=== PATIENT | male | born 1950 | race Caucasian/White ===

== ENCOUNTER 2021-07-31 06:57 | Observation (INO) ==
--- NOTE | 2021-06-27 15:36 | PAT Medication Instructions ---
Medication Instructions Date of Service June 27, 2021 Home Medications aspirin 81 mg chewable tablet 3 tab PO HS allopurinol 100 mg tablet 100 mg PO BID empagliflozin 25 mg tablet (Jardiance) 25 mg PO QAM glipizide 5 mg tablet, extended release 24 hr 10 mg PO 1200 rosuvastatin 5 mg tablet (Crestor) 5 mg PO HS bupropion HCl 200 mg tablet,12 hr sustained-release 200 mg PO QAM cholecalciferol (vitamin D3) 50 mcg (2,000 unit) tablet (Vitamin D3) 50 mcg PO QAM duloxetine 30 mg capsule,delayed release 30 mg PO HS garlic 1 mg capsule 2 mg PO BID glipizide 5 mg tablet 5 mg PO QPM metformin 500 mg tablet,extended release 24 hr 1,000 mg PO BID metoprolol tartrate 50 mg tablet 50 mg PO BID selenium 100 mcg tablet 100 mcg PO QAM semaglutide (Ozempic) 0.25 mg SUBCUT WK sildenafil 100 mg tablet 100 mg PO DAILY PRN Continue as directed semaglutide (Ozempic) 0.25 mg SUBCUT WK ASK your prescriber and surgeon aspirin 81 mg chewable tablet 3 tab PO HS STOP taking 2 weeks before surgery (or as soon as possible if surgery is within 2 weeks) garlic 1 mg capsule 2 mg PO BID DO NOT take the morning of surgery empagliflozin 25 mg tablet (Jardiance) 25 mg PO QAM glipizide 5 mg tablet, extended release 24 hr 10 mg PO 1200 cholecalciferol (vitamin D3) 50 mcg (2,000 unit) tablet (Vitamin D3) 50 mcg PO QAM metformin 500 mg tablet,extended release 24 hr 1,000 mg PO BID selenium 100 mcg tablet 100 mcg PO QAM sildenafil 100 mg tablet 100 mg PO DAILY PRN Take morning of surgery With a small sip of water, OTHERWISE NOTHING TO EAT OR DRINK AFTER MIDNIGHT: allopurinol 100 mg tablet 100 mg PO BID bupropion HCl 200 mg tablet,12 hr sustained-release 200 mg PO QAM metoprolol tartrate 50 mg tablet 50 mg PO BID Take evening before surgery allopurinol 100 mg tablet 100 mg PO BID rosuvastatin 5 mg tablet (Crestor) 5 mg PO HS duloxetine 30 mg capsule,delayed release 30 mg PO HS glipizide 5 mg tablet 5 mg PO QPM metformin 500 mg tablet,extended release 24 hr 1,000 mg PO BID metoprolol tartrate 50 mg tablet 50 mg PO BID sildenafil 100 mg tablet 100 mg PO DAILY PRN (if needed) Other Notes If you have any questions please call us at [phone] or [phone] or [phone] or [phone]
--- NOTE | 2021-07-01 11:10 | Anesthesiology Consultation ---
Date of Service July 01, 2021 Assessment & Plan (1) Encounter for pre-operative examination: - COVID screening: Per assessment on 07/01: No known COVID-19 positive contacts or current COVID-19 related symptoms. Travel screen negative. Patient raji hammond. Surgeon arranging preop COVID testing. Awaiting results. - Check BSG AM DOS - Awaiting surgeon ordered clearances: cardiology ([facility] 07/10), nephrology ([facility] 07/10) and PCP ([facility] 07/22). Chart Review Chart Review: Patient seen in Pre Admission Testing Teaching & Discussion Pre-Anesthesia Teaching/Discussion Notes: Instructed NPO after midnight before surgery,except medications with 15 cc of water. Medication instructions provided according to the PAT guidelines. History Surgery Operation Date: 07/31/21 10:05 Proposed Procedures p Left Total Hip Arthroplasty - Matt Duvall DO Height/Weight Height: 5 ft 10 in Weight: 110.9 kg Allergies Allergy/AdvReac Type Severity Reaction Status Date / Time bee venom protein (honey bee) Allergy Severe Anaphylaxis Verified 06/27/21 09:46 metformin AdvReac Mild Diarrhea Verified 07/01/21 10:37 (tolerates ER form) simvastatin AdvReac Mild Muscle Verified 07/01/21 10:37 aches Medications Home Medications Medication Instructions Recorded Confirmed Last Taken aspirin 81 mg chewable tablet 3 tab PO HS tab 09/18/20 06/27/21 Unknown allopurinol 100 mg tablet 100 mg PO BID 04/25/21 06/27/21 Unknown empagliflozin 25 mg tablet 25 mg PO QAM 06/10/21 06/27/21 Unknown (Jardiance) glipizide 5 mg tablet, extended 10 mg PO 1200 tab 06/10/21 06/27/21 Unknown release 24 hr rosuvastatin 5 mg tablet (Crestor) 5 mg PO HS 06/10/21 06/27/21 Unknown bupropion HCl 200 mg tablet,12 hr 200 mg PO QAM 06/27/21 06/27/21 Unknown sustained-release cholecalciferol (vitamin D3) 50 50 mcg PO QAM 06/27/21 06/27/21 Unknown mcg (2,000 unit) tablet (Vitamin D3) duloxetine 30 mg capsule,delayed 30 mg PO HS 06/27/21 06/27/21 Unknown release garlic 1 mg capsule 2 mg PO BID 06/27/21 06/27/21 Unknown glipizide 5 mg tablet 5 mg PO QPM 06/27/21 06/27/21 Unknown metformin 500 mg tablet,extended 1,000 mg PO BID 06/27/21 06/27/21 Unknown release 24 hr metoprolol tartrate 50 mg tablet 50 mg PO BID 06/27/21 06/27/21 Unknown selenium 100 mcg tablet 100 mcg PO QAM 06/27/21 06/27/21 Unknown semaglutide (Ozempic) 0.25 mg SUBCUT WK 06/27/21 06/27/21 Unknown sildenafil 100 mg tablet 100 mg PO DAILY PRN 06/27/21 06/27/21 Unknown Past Medical History Medical History Coronary artery disease s/p CABG x3 (2009) Follows with [facility] cardiology Depression Diabetes mellitus NIDDM Dyslipidemia History of UT (myocardial infarction) Hypertension Neuropathy of both feet Osteoarthritis Post traumatic stress disorder Stage 3b chronic kidney disease Follows with [facility] nephro Exercise / Class Metabolic Activity II 4-5 Yardwork/Stairs/Walk up hill (one FS (no CP, no SOB)) Past Family History Family History Mother Diabetes Heart disease Other No family history of adverse response to anesthesia Past Surgical History Surgical History History of cardiac cath 07/2009 > no stents ([facility]), subsequent CABG History of colonoscopy History of open heart surgery CABG X 3 (2009): Barros-LAD; SVG-OM1; SVG-PDA History of tooth extraction S/P thyroid biopsy benign Past Anesthesia History No Hx of Anesthesia Complications and No Family Hx of Anesthesia Complications History of PONV No Hx of PONV and No Hx of Motion Sickness Social History Smoking Status: Former smoker Do You Dip or Chew Tobacco: No Smoking End Date: Quit 2009 Hx Alcohol Use: No (Quit drinking at the age of 32) Hx Substance Use: No substance use type: does not use Review of Systems Patient denies chest pain, shortness of breath, dyspnea on exertion, fever, chills, cough, wheezing, palpitations. Physical Exam Vital Signs VITALS BP 147/74 P 70 TEMP 97.9 SP02 97%RA RESP 16 PHYSICAL Full cervical extension range of motion. Full TMJ range of motion. TMD 3 finger breaths Mallampati Score 2 Dentition: only three remaining of lower Lungs: clear throughout to auscultation Cardiac: regular rate and rhythm, no murmurs noted Spine: normal Carotid arteries: negative bruit Extremities: no edema Lab Results Anesthesia Preop Results Results Anesthesia Widget: WBC 8.50 K/uL (4.8-10.8) 07/01/21 Hgb 16.8 g/dL (14.0-18.0) 07/01/21 Hct 48.5 % (42-52) 07/01/21 Plt 218 K/uL (130-400) 07/01/21 Na 136 mmol/L (136-145) 07/01/21 K 4.2 mmol/L (3.5-5.1) 07/01/21 Cl 103 mmol/L (98-107) 07/01/21 CO2 25 mmol/L (21-32) 07/01/21 BUN 40 mg/dl (6-23) H 07/01/21 Creat 1.59 mg/dl (0.6-1.4) H 07/01/21 Glucose Level 138 mg/dl (70-99(Fasting)) H 07/01/21 PT 10.1 Seconds (9.0-12.0) 07/01/21 PTT 28.0 Seconds (21.0-31.0) 07/01/21 INR 0.9 (0.9-1.1) 07/01/21 HA1c 7.9 % (4.5-5.6) H 07/01/21 Urine Color Dark Yellow 07/01/21 Urine Appearance Clear (Clear) 07/01/21 Urine pH 5.5 (4.5-7.5) 07/01/21 Urine Specific [place] 1.027 (1.000-1.030) 07/01/21 Urine Protein 1+ (Negative) H 07/01/21 Urine Glucose (UA) 3+ (Negative) H 07/01/21 Urine Ketones Negative (Negative) 07/01/21 Urine Blood Negative (Negative) 07/01/21 Urine Nitrite Negative (Negative) 07/01/21 Urine Bilirubin Negative (Negative) 07/01/21 Urine Urobilinogen Negative (Negative) 07/01/21 Urine Leukocyte Esterase Negative (Negative) 07/01/21 Urine WBC (Auto) 1-5 /hpf (0-5) 07/01/21 Urine RBC (Auto) 0-4 /hpf (0-4) 07/01/21 Urine Hyaline Casts (Auto) 0 /lpf (0-5) 07/01/21 Urine Epithelial Cells (Auto) >30 /lpf (0-5) H 07/01/21 Urine Bacteria (Auto) Negative (Negative) 07/01/21 Blood Type O Positive 07/01/21 Antibody Screen NEGATIVE 07/01/21 Testing Laboratory Results Kristen at surgeon's office made aware of elevated A1C* Electrocardiogram Date: 09/18/20 Sinus rhythm at 80 bpm. RBBB. Possible anterior septal myocardial infarction, indeterminate age. Per rubber mixer review: inferior UT. Low QRS voltage consistent with ECG 11/04/2011. No significant change. Stress Test Date: 01/21/16 Type: nuclear Nondiagnostic stress ECG. Mild inferior, inferior lateral, apical ischemia. Mo derate probability of obstructive CAD. No significant infarction. 56% MPHR. LVEF 68%. Stress test was reviewed at [facility] cardiology office visits. Per office visit from 09/18/20, "Lexiscan pharmacologic stress test performed 2016 in [place] with report of mild inferior and apical ischemia.. At this time the patient does not have any anginal or anginal equivalent symptoms." > medical management done. Other Testing CT lung (09/04/20): Typically benign subcentimeter pulmonary nodules. 12 month screening follow-up recommended. Cholelithiasis. 35 mm right lobe thyroid nodule. Ultrasound follow-up recommended. Thyroid ultrasound (09/27/20): Bilateral thyroid nodules. The right thyroid nodule meets biopsy criteria. (Per 10/05/20, biopsy > Atypia of undetermined significance/follicular lesion of undetermined significance is seen. Repeat aspiration in 6-8 weeks was recommended. Per repeat biopsy, 11/15/20 > Consistent with a benign follicular nodule.)
--- NOTE | 2021-07-31 05:51 | History & Physical Report ---
Date of Service July 31, 2021 Assessment & Plan (1) Osteoarthritis of left hip: Plan: Schedule a Left Total Hip Arthroplasty for 07.31.21. All potential risks, benefits, complications, alternatives, and rehab have been discussed with the patient and he wishes to proceed. Plan for ASA 81 mg BID x 4 wks for post op DVT prophylaxis. History of Present Illness Chief Complaint: left hip pain Primary Care Provider: Mary Stoddard DO This is a patient with chronic left hip and groin pain. He has been treated conservatively for left hip osteoarthritis but has failed all conservative management. He is now being set up for surgical management. Allergies Allergy/AdvReac Type Severity Reaction Status Date / Time bee venom protein (honey bee) Allergy Severe Anaphylaxis Verified 07/22/21 08:02 metformin AdvReac Mild Diarrhea Verified 07/22/21 08:02 (tolerates ER form) simvastatin AdvReac Mild Muscle Verified 07/22/21 08:02 aches Home Medications Medication Instructions Recorded Confirmed Type aspirin 81 mg chewable tablet 3 tab PO HS tab 09/18/20 07/22/21 History allopurinol 100 mg tablet 100 mg PO BID 04/25/21 07/22/21 History empagliflozin 25 mg tablet 25 mg PO QAM 06/10/21 07/22/21 History (Jardiance) glipizide 5 mg tablet, extended 10 mg PO 1200 tab 06/10/21 07/22/21 History release 24 hr rosuvastatin 5 mg tablet (Crestor) 5 mg PO HS 06/10/21 07/22/21 History bupropion HCl 200 mg tablet,12 hr 200 mg PO QAM 06/27/21 07/22/21 History sustained-release cholecalciferol (vitamin D3) 50 50 mcg PO QAM 06/27/21 07/22/21 History mcg (2,000 unit) tablet (Vitamin D3) duloxetine 30 mg capsule,delayed 30 mg PO HS 06/27/21 07/22/21 History release glipizide 5 mg tablet 5 mg PO QPM 06/27/21 07/22/21 History metformin 500 mg tablet,extended 1,000 mg PO BID 06/27/21 07/22/21 History release 24 hr metoprolol tartrate 50 mg tablet 50 mg PO BID 06/27/21 07/22/21 History selenium 100 mcg tablet 100 mcg PO QAM 06/27/21 07/22/21 History sildenafil 100 mg tablet 100 mg PO DAILY PRN 06/27/21 07/22/21 History semaglutide (Ozempic) 0.5 mg SUBCUT WK ml 07/22/21 07/22/21 History Past Med/Surg History Medical History Coronary artery disease s/p CABG x3 (2009) Follows with [facility] cardiology Depression Diabetes mellitus NIDDM Dyslipidemia History of AR (myocardial infarction) Hypertension Neuropathy of both feet Osteoarthritis Post traumatic stress disorder Stage 3b chronic kidney disease Follows with [facility] nephro Surgical History History of cardiac cath 07/2009 > no stents ([facility]), subsequent CABG History of colonoscopy History of open heart surgery CABG X 3 (2009): [facility]ros-LAD; SVG-OM1; SVG-PDA History of tooth extraction S/P thyroid biopsy benign Family History Mother Diabetes Heart disease Other No family history of adverse response to anesthesia Social History Smoking Status: Former smoker Second Hand Exposure: Yes; Hx Alcohol Use: No (Quit drinking at the age of 32) Hx Substance Use: No Preferred Language: Togolese Communication Ability: Effective Slitter Scorer Cut Off Operator Required: No Beliefs That Will Affect Care: None marital status: Current Living Situation: Spouse current occupational status: retired current occupation: parts back counter man [employer] How many Children do You have: 2 Feels Safe at Home: Yes Seatbelt Use: always Do you think of yourself as: straight/heterosexual Gender Identity: Male Assistive Devices: Cane and Glasses Physical Exam Constitutional: well developed and well nourished; no acute distress ENMT: external ear and nose normal, oropharynx normal Neck: trachea midline Respiratory: normal respiratory effort, lungs clear to auscultation Cardiovascular: Rate/Rhythm: regular rate and regular rhythm Gastrointestinal (Abdomen): normal bowel sounds, soft, nontender, no hepatosplenomegaly Musculoskeletal: Gait: + antalgic gait Hip: + limited ROM of hip (left internal/external rotation), + joint line tenderness (left groin) and + ALAINA test positive (left); no skin erythema and no ecchymosis Skin: no rashes, warm and dry Trauma: no evidence of skin trauma Neurologic: normal touch/pain/proprioception Psychiatric: A+Ox3, euthymic affect Speech: normal rate/rhythm/volume of speech Lymphatic: no cervical or axillary lymphadenopathy
[~2021-07-31 06:57] MED LIST: ACETAMINOPHEN 500 MG TAB PO SCH; BUPIVACAINE 0.5 % 5 MG/1 ML PF 10ML VIAL ONE; CeleBREX 200 MG CAP PO SCH; FAMOTIDINE 20 MG TAB PO SCH; GABAPENTIN 300 MG CAP PO SCH; LR 500ML BOLUS, THEN 15ML/HR IV SCH; METOCLOPRAMIDE HCL 10 MG TABLET PO SCH; ROPIVACAINE 0.5% HCL/PF 150 MG, BUPIVACAINE 0.75% MPF 20 ML, EPINEPHrine 30MG/30ML (OR ... INSTIL SCH; TRANEXAMIC ACID 1,000 MG **IV Intra-op IV SCH; TRANEXAMIC ACID 1,000 MG **IV Pre-op IV SCH; ceFAZolin 2000MG 2,000 MG/15 ML SYR IV SCH; dexAMETHasone 4 MG TAB PO SCH; oxyCODONE HCL 10 MG TABCR (OxyCONTIN) PO SCH
--- NOTE | 2021-07-31 07:21 | History & Physical Bridge Note ---
Date of Service July 31, 2021 History & Physical Bridge Note I have examined the patient, reviewed the History & Physical and in the interval since the performance of the History & Physical I have noted the following changes of clinical significance: no changes noted
[2021-07-31] MEDS ORDERED: fentaNYL citrate 100 MCG/2 ML VIAL ONE (08:26)
[2021-07-31] MEDS ORDERED: DEXAMETHASONE SOD INJ 4 MG/ML VIAL ONE (08:26)
[2021-07-31] MEDS ORDERED: PROPOFOL IV EMULSION 10 MG/ML 20 ML VIAL IV ONE ×6 (08:26→13:55)
[2021-07-31] MEDS ORDERED: MIDAZOLAM HCL 1 MG/ML 2ML VIAL ONE (08:26)
[2021-07-31] MEDS ORDERED: LIDOCAINE 2% 2 ML VIAL/AMP(20MG/ML) INFIL ONE (08:26)
[2021-07-31] MEDS ORDERED: ONDANSETRON INJ 2 MG/ML 2 ML VIAL IV PRN ×2 (09:46→16:26)
[2021-07-31] MEDS ORDERED: fentaNYL citrate 100 MCG/2 ML VIAL IV PRN (09:46)
[2021-07-31] MEDS ORDERED: ATROPINE SULFATE 0.1 MG/ML 10ML SYR IV PRN (09:46)
[2021-07-31] MEDS ORDERED: MEPERIDINE HCL 25 MG/ML CARP/VIAL IV PRN (09:46)
[2021-07-31] MEDS ORDERED: ePHEDrine sulfate 50 MG/ML AMP IV PRN (09:46)
[2021-07-31] MEDS ORDERED: PHENYLEPHRINE 100MCG/ML 5ML SYR IV PRN (09:46)
[2021-07-31] MEDS ORDERED: HYDROmorphone INJ 1 MG/ML SYRINGE IV PRN (09:46)
[2021-07-31] MEDS ORDERED: LABETALOL HCL IV 5 MG/ML 20ML IV PRN (09:46)
[2021-07-31] MEDS ORDERED: ceFAZolin 330 MG/ML 1 GM VIAL ONE (10:08)
[2021-07-31] MEDS ORDERED: ORTHO JOINT ANESTHETIC ONE (10:08)
--- NOTE | 2021-07-31 14:22 | Post Operative Brief Note ---
Immediate Post Op Note v1 Date of Surgery July 31, 2021 Pre & Post Diagnosis Operation Date: 07/31/21 09:15 Pre-Op Diagnosis: Left Hip Osteoarthritis, left hip pain Post-Op Diagnosis: Left Hip Osteoarthritis, left hip pain I identified the patient and participated in the time-out.: Yes Procedure Operation Date: 07/31/21 09:15 Actual Procedures p Left Total Hip Arthroplasty-Uncemented [place] Accolade 2 size 6 femoral stem, Biolox delta V 40 femoral head 36 mm by +2.5 mm, 6.5 mm low-profile hex screws x2, Trident X3 10 degree polyethylene insert, Trident 2 acetabular shell 56 mm diameter. Matt Duvall DO Surgeon Matt Duvall DO Chief Catalyst Operator Reyes Cramer PA-C Estimated Blood Loss 250 Findings Consistent with Post-Op Diagnosis Specimens Bone and tissue left hip Drains Hemovac Drain (10 Fr dual trocar) Anesthesia Type MAC Spinal Regional Complications none Disposition Accompanied Patient To Recovery: No
[2021-07-31] MEDS ORDERED: INSULIN ASPART PER UNIT SC STA (15:10)
--- NOTE | 2021-07-31 15:14 | XRay Report ---
XR hip 1V LT w pelvis CLINICAL HISTORY: IN PACU - A/P PELVIS and LATERAL HIP . Status post total hip replacement COMPARISON STUDY: No previous studies for comparison. TECHNIQUE: 2 left hip views FINDINGS: The patient is status post total hip replacement. The prosthetic components are in anatomic alignment with no acute abnormality seen. IMPRESSION: 1. Status post total hip replacement. ACT 112: Negative or not required by law. Electronically signed by: Simone Cha M.D. 07/31/2021 3:12 PM
[2021-07-31] MEDS ORDERED: PHARMACY GLYCEMIC MGMT CONSULT PRN ×2 (16:02→16:26)
--- NOTE | 2021-07-31 16:04 | Anesthesiology Progress Note ---
Date of Service July 31, 2021 Anesthesia Post Procedure Vital Signs Vital Signs: Temp Pulse Pulse Resp BP BP Pulse Ox 07/31/21 15:55 86 13 140/79 94 07/31/21 15:45 86 15 139/87 95 07/31/21 15:35 36.3 C L 89 13 127/73 94 07/31/21 15:25 85 13 127/71 96 07/31/21 15:15 83 16 145/76 H 98 07/31/21 15:05 81 15 141/75 H 97 07/31/21 14:55 83 16 137/72 98 07/31/21 14:45 84 18 143/81 H 97 07/31/21 14:35 86 23 125/68 99 07/31/21 14:29 36.3 C L 88 20 113/78 97 07/31/21 07:10 36.6 C 75 16 157/81 H 100 Pain Intensity Left Hip: Pain Intensity: 2 Transfer of Care Handoff Completed per policy Notes Mental Status: alert / awake / arousable Patient Amnestic to Procedure: Yes Nausea / Vomiting: adequately controlled Pain: adequately controlled Airway Patency, RR, SpO2: stable & adequate BP & HR: stable & adequate Hydration State: stable & adequate Neuraxial Anesthesia: was administered and sensory block is resolving Anesthetic Complications: no major complications apparent and Pt Satisfied with anesthetic care Notes: The patient is awake and comfortable. Postop BSG was 224. He was given Novolog 4 units SC. Pharmacy glycemic management protocol has been ordered.
[2021-07-31] MEDS ORDERED: MAGNESIUM HYDROXIDE SUSP 30 ML UDC PO PRN (16:26)
[2021-07-31] MEDS ORDERED: bisacodyL 10 MG SUPP PR PRN (16:26)
[2021-07-31] MEDS ORDERED: diphenhydrAMINE Capsule 25 MG CAP PO PRN (16:26)
[2021-07-31] MEDS ORDERED: ALUMINUM/MAGNESIUM SUSP 30 ML UDC PO PRN (16:26)
[2021-07-31] MEDS ORDERED: GLIPIZIDE 5 MG PO SCH (16:26)
[2021-07-31] MEDS ORDERED: NALOXONE HCL 0.4 MG/1 ML VIAL/CARP IV PRN (16:26)
[2021-07-31] MEDS ORDERED: HYDROmorphone INJ 0.5 MG/0.5 ML SYR IV PRN (16:26)
[2021-07-31] MEDS ORDERED: METOCLOPRAMIDE HCL INJ 5 MG/ML 2 ML VIAL IV PRN (16:26)
[2021-07-31] MEDS ORDERED: NON-FORMULARY MEDICATION (Sildenafil 100 mg Tablet) PO PRN (16:26)
[2021-07-31] MEDS ORDERED: KETOROLAC TROMETHAMINE 15 MG/ML VIAL IV PRN (16:26)
[2021-07-31] MEDS: ACETAMINOPHEN 500 MG TAB PO SCH (16:51)
[2021-07-31] MEDS: ceFAZolin 2000MG 2,000 MG/15 ML SYR IV SCH (17:06)
[2021-07-31] MEDS ORDERED: INSULIN GLARGINE SOLOSTAR 100 UNITS/ML 3 ML PEN SQ STA (17:07)
[2021-07-31] MEDS ORDERED: GLUCAGON FOR INJ 1 MG VIAL IM PRN (17:15)
[2021-07-31] MEDS ORDERED: DEXTROSE 50% 50 ML SYRINGE IV PRN (17:15)
[2021-07-31] MEDS ORDERED: GLUCOSE 40% GEL 15 GM TUBE PO PRN (17:15)
[2021-07-31] MEDS ORDERED: GLUCOSE 10 TABS/TUBE PO PRN (17:15)
[2021-07-31] MEDS ORDERED: CARBOHYDRATES FOR HYPOGLYCEMIA PO PRN (17:15)
[2021-07-31] MEDS: SODIUM CHLORIDE 0.9% 1000ML 1,000 ML IV SCH (17:28)
[2021-07-31] MEDS: INSULIN ASPART PER UNIT SC SCH ×2 (17:37→21:19)
--- NOTE | 2021-07-31 19:19 | Operative Report (OR) ---
DATE OF PROCEDURE: 07/31/2021. PREOPERATIVE DIAGNOSES: 1. Left hip osteoarthritis. 2. Left hip pain. POSTOPERATIVE DIAGNOSES:. 1. Left hip osteoarthritis. 2. Left hip pain. PROCEDURES PERFORMED: Left total hip arthroplasty using a press fit [place] Accolade II size 6 femoral stem, standard neck offset, Biolox Delta V40 femoral head, 36 mm x +2.5 mm neck length, Trident X3 10-degree polyethylene insert, Trident II acetabular shell 56 mm in diameter, 6.5 mm low profile hex screws x2. SURGEON: Matt Duvall DO. HORTICULTURAL SPECIALTY GROWER FIELD: Reyes Cramer PA-C who was present for patient positioning, sterile prep and drape, management of retractors and instruments. He was present through the critical portions of the case including wound closure, application of sterile dressing and transport of the patient to recovery. ANESTHESIA: Spinal MAC with local. SPECIMENS: Bone and tissue, left hip. DRAINS: Hemovac x2. COMPLICATIONS: None. BLOOD LOSS: 250 mL. PERTINENT HISTORY: This is a 71-year-old gentleman who has had chronic progressive and worsening left hip pain over the last 3 to 5 years. Specifically, worsening to the point of use of an assistive device over the last 9-12 months. He attempted and failed conservative management including steroid injections, use of assistive device, observation, rest, physical therapy, intraarticular steroid injections and anti-inflammatories. All measures failed. He had radiographs demonstrated complete loss of joint space of the left hip with marginal osteophytes, subchondral sclerosis, and subchondral cysts. The patient was scheduled for surgery as indicated. All potential risks, benefits, complications, alternatives, rehab potential for incomplete relief of symptoms, need for further surgery, DVT, PE, , persistent pain, swelling, scarring, weakness, neurovascular injury, wound complications, hardware failure, nonunion, malunion, bone fracture were discussed with the patient. The patient decided to proceed with the procedure as indicated. DESCRIPTION OF PROCEDURE: The patient was taken to the Operating Suite and placed supine on the Operating Room table after identification of the consent and identification of the proper operative site the patient was sedated. The patient had previously received a spinal epidural anesthetic. The patient was then placed in the right lateral decubitus position with the affected side up and Stulberg positioning device then used to maintain lateral position of the patient. All bony prominences were properly padded and protected. Axillary roll was placed as standard and the leg lengths were determined to be essentially equal and then the left hip was then sterilely prepped and draped in the usual fashion. 10-blade scalpel incision was made laterally over the greater trochanter. The incision was deepened through the subcutaneous tissue and meticulous hemostasis with electrocautery. Further deepening of the wound through the layer of the fascia was performed with electrocautery and iliotibial band was then incised with electrocautery. Next, Charnley retractor was placed both anteriorly and posteriorly at the level of the gluteus jesse tendon. Next, electrocautery was used to make an incision in the vastus lateralis and then sweep was made toward the anterior aspect of the patient along the course of the femoral neck and head. Abductor split was then completed. The gluteus minimus and capsule were then incised and then soft tissue was dissected anteriorly. Next as the soft tissue was dissected anteriorly the lesser trochanter was clearly identified and hip was dislocated with relative ease. Hypertrophic osteophytes were noted circumferentially. The hip joint was noted to be noticeably tight. Next the sagittal saw was used to resect the proximal portion of the femoral neck and head approximately one fingerbreadth proximal to the lesser trochanter. Head was then removed and next the labrum was excised from the acetabulum with a 27 blade scalpel and long forceps. Next the wound was irrigated with pulsatile lavage and the pulvinar was then excised from the acetabulum. Appropriate retractors were placed anteriorly superiorly and posteriorly. Next initial acetabular reamer was placed 44 mm medialized to the medial wall and then sequential reaming was performed to size 56 mm. Trial cage was then placed and noted to be stable with excellent fit. Next the wound was irrigated with pulsatile lavage with bacitracin additive and Trident II acetabular shell 56 mm in diameter, 6.5 mm was impacted and then low profile hex screws x2 were used to stabilize the acetabular shell. Next Trident X3 10-degree polyethylene insert was impacted into the shell. Lap sponge was placed over to protect it. Next, attention was turned toward the proximal femur. Box osteotome was used to resect proximal portion of bone followed by first pass small reamer. Next, sequential broaching was performed up to size 6 and the 6 trial was placed followed by +2.5mm X 36 mm trial head. Next, it was reduced and had excellent fit and feel with minimal shuck and excellent stability in all planes and range of motion. Leg lengths were restored and next all trial implants were removed. The wound was copiously irrigated with pulsatile lavage and size 6 press fit [place] Accolade II x 132 degree femoral stem was impacted. Next, Biolox Delta V40 femoral head 36 mm head x +2.5 neck was impacted. The construct was reduced. Range of motion was performed and noted to be completely stable with excellent range of motion, improved to greater degree than prior to surgery. Two 10 Nepali single Hemovac drains were placed exiting anterolaterally. Wound was irrigated with pulsatile lavage. Next a #5 FiberWire suture was used to close the capsule and gluteus minimum via two small bone tunnels made with 2.4 mm drill bit in the greater trochanter. After FiberWire closure was completed and noted to be stable then 10 Nepali drains were placed followed by closure of the vastus lateralis and the gluteus medius. This was closed with #1 Vicryl sutures. Next, the iliotibial band was closed using interrupted [id number] #1 Vicryl sutures. Next, final irrigation was performed with pulsatile lavage and dermis was closed using buried interrupted 2-0 Vicryl suture. The skin was closed with skin amy. Sterile compressive dressing was applied. The patient was then placed supine and taken to recovery in stable condition. Job ID: [id number] [id number]
[2021-07-31] MEDS ORDERED: TRANEXAMIC ACID / 0.7% NACL 1,000 MG/100 ML BAG IV SCH (20:30)
[2021-07-31] MEDS: ASPIRIN 81 MG ECTAB PO SCH (20:30)
[2021-07-31] MEDS: DOCUSATE SODIUM 100 MG CAP PO SCH (20:30)
[2021-07-31] MEDS: allopurinoL 100 MG TAB PO SCH (20:31)
[2021-07-31] MEDS: METOPROLOL TARTRATE 50 MG TAB PO SCH (20:32)
[2021-07-31] MEDS ORDERED: DULoxetine HCL 30 MG CAP PO SCH (21:00)
[2021-07-31] MEDS ORDERED: glipiZIDE 5 MG TAB PO SCH (21:00)
[2021-07-31] MEDS ORDERED: SENNA 8.6 MG TAB PO SCH (21:00)
[2021-07-31] MEDS ORDERED: metFORMIN HCL ER 500 MG TABCR PO SCH (21:00)
[2021-07-31] MEDS ORDERED: CeleBREX 200 MG CAP PO SCH (21:00)
[2021-07-31] MEDS ORDERED: ROSUVASTATIN CALCIUM 5 MG TAB PO SCH (21:00)
[2021-08-01] MEDS: INSULIN ASPART PER UNIT SC SCH ×3 (00:15→08:57)
[2021-08-01] MEDS: ACETAMINOPHEN 500 MG TAB PO SCH ×2 (00:17→08:51)
[2021-08-01] MEDS: ceFAZolin 2000MG 2,000 MG/15 ML SYR IV SCH (01:57)
[2021-08-01] MEDS: SODIUM CHLORIDE 0.9% 1000ML 1,000 ML IV SCH (03:32)
[2021-08-01 07:12] LABS: Hemoglobin 14.2 g/dL (14.0-18.0); Immature Granulocytes # (auto) 0.02 K/uL (0.00-0.02); Immature Granulocytes % (auto) 0.2 %; Lymphocytes # (auto) 1.34 K/uL (1.2-3.4); Lymphocytes % (auto) 10.8 %; Mean Corpuscular Hemoglobin 33.3 pg (25-34); Mean Corpuscular Hgb Conc 36.4 g/dL (32-36); Mean Corpuscular Volume 91.5 fL (80-100); Mean Platelet Volume 10.6 fL (7.4-10.4); Monocytes # (auto) 1.08 K/uL (0.11-0.59); Monocytes % (auto) 8.7 %; Neutrophils # (auto) 9.99 K/uL (1.4-6.5); Neutrophils % (auto) 80.3 %; Platelet Count 209 K/uL (130-400); RDW Coefficient of Variation 14.1 % (11.5-14.5); RDW Standard Deviation 46.9 fL (36.4-46.3); Red Blood Count 4.26 M/uL (4.7-6.1); White Blood Count 12.43 K/uL (4.8-10.8)
[2021-08-01 07:45] LABS: BUN Creatinine Ratio 19.3 (10-20); Est GFR (African American) 54.3 ml/min; Est GFR (Non-African American) 46.8 ml/min; Potassium 4.1 mmol/L (3.5-5.1)
--- NOTE | 2021-08-01 08:30 | Orthopedic Progress Note ---
Date of Service August 01, 2021 Assessment & Plan (1) Osteoarthritis of left hip: Plan: Postop day #1 status post left total hip arthroplasty PT/OT DVT prophylaxisTED stockings, aspirin 81 mg twice daily. Pain controloxycodone, Tylenol Weight-bear as tolerated left lower extremity. Discharge planningplan for home with home health today if PT goes well. Admission and Anticipated Discharge Date Admission Date: July 31, 2021 Supervising Physician Co-Signing Physician Notes Patient seen and examined. Agree with SHANE Cramer's note as above. Patient denies any significant pain in his hip. He is ambulating well in the hallway with therapy. Review total hip precautions with him. Plan for discharge home today. Subjective Doing well today. States the pain is controlled within the left hip. He has a little discomfort when he is up walking, otherwise he is doing well. Denies chest pain, shortness of breath, lightheadedness. Physical Exam Constitutional: well developed and well nourished; no acute distress ENMT: external ear and nose normal, oropharynx normal Neck: trachea midline Respiratory: normal respiratory effort, lungs clear to auscultation Cardiovascular: Rate/Rhythm: regular rate and regular rhythm Gastrointestinal (Abdomen): normal bowel sounds, soft, nontender, no hepatosplenomegaly Musculoskeletal: Gait: + antalgic gait Hip: + surgical incision (KERRY dressing in place and functioning. C/D/I) and + surgical drain present (225 cc drainage in 24 hours); no skin erythema and no ecchymosis Skin: no rashes, warm and dry Trauma: no evidence of skin trauma Neurologic: normal touch/pain/proprioception Psychiatric: A+Ox3, euthymic affect Speech: normal rate/rhythm/volume of speech Lymphatic: no cervical or axillary lymphadenopathy Results & Data ([facility]) Vital Signs (Past 12 Hours) Vital Signs Temp Pulse Resp BP Pulse Ox 08/01/21 07:59 36.9 C 87 16 137/70 97 08/01/21 04:11 36.4 C L 86 16 126/65 96 07/31/21 22:40 36.8 C 92 H 16 109/66 94 07/31/21 21:16 36.8 C 91 H 16 119/66 95 Laboratory Results Laboratory Tests 08/01/21 08/01/21 06:13 06:13 Hgb 14.2 Hct 39.0 L BUN 29 H Creatinine 1.50 H
[2021-08-01] MEDS: METOPROLOL TARTRATE 50 MG TAB PO SCH (08:52)
[2021-08-01] MEDS: ASPIRIN 81 MG ECTAB PO SCH (08:52)
[2021-08-01] MEDS: DOCUSATE SODIUM 100 MG CAP PO SCH (08:53)
[2021-08-01] MEDS: allopurinoL 100 MG TAB PO SCH (08:53)
[2021-08-01] MEDS: oxyCODONE HCL IR 5 MG TAB (IMMEDIATE RELEASE) PO PRN ×2 (08:57→13:28)
[2021-08-01] MEDS ORDERED: CHOLECALCIFEROL 1,000 UNITS 25 MCG TAB PO SCH (09:00)
[2021-08-01] MEDS ORDERED: buPROPion SR 100 MG TABCR PO SCH (09:00)
[2021-08-01] MEDS ORDERED: SELENIUM 100 MCG PO SCH (09:00)
[2021-08-01] MEDS ORDERED: MULTIVITAMIN TAB PO SCH (09:00)
[2021-08-01] MEDS ORDERED: INSULIN GLARGINE SOLOSTAR 100 UNITS/ML 3 ML PEN SQ STA (12:32)
--- NOTE | 2021-08-01 13:02 | Pharmacy Report ---
Pharmacy Glycemic Short Note 2 - Date of Service August 01, 2021 - Glycemic Short BSG Results (Last 24 hours): 07/31/21 07/31/21 07/31/21 14:51 17:00 20:35 Glucose POC Glucose 224 H 207 H 182 H 08/01/21 08/01/21 08/01/21 00:02 04:08 06:13 Glucose 158 H POC Glucose 195 H 214 H 08/01/21 08/01/21 08:03 12:12 Glucose POC Glucose 150 H 157 H OUTPATIENT ANTIDIABETIC REGIMEN: * Ozempic 0.5 mg SQ weekly on Mondays * Jardiance 25 mg daily * Metformin 1000 mg PO BID ASSESSMENT: * 71 y/o M admitted for L total hip arthroplasty yesterday. Patient with history of Type 2 diabetes managed on three anti-diabetic meds as noted above. Holding these while admitted. Plan to resume Metformin closer to discharge if patient is eating and renal function is stable. * Patient received two doses of Dexamethasone 8 mg PO and IV yesterday. BSGs trended up above 200 mg/dl later yesterday. * Basal Lantus 25 untis given at 18:00 yesterday. Dose of 10 units x1 given at noon today. Plan to move up basal dosing to AM if patient remains admitted. * Since hyperglycemia effects of the steroid yesterday should have worn off by now, Novolog parameters were loosened with lunch today. PLAN FOR INPATIENT GLYCEMIC CONTROL: * Hold outpatient diabetes medications * Basal insulin * Lantus 25 units SQ x1 yesterday evening, 10 units SQ x1 today afternoon. * Bolus insulin: loosened CF/CR * NovoLog per scale ACHS or Q6hrs while NPO * Goal Range: Low 110 mg/dL - High 140 mg/dL * Correction Factor: 20 mg/dL/unit * Nutritional / Prandial insulin per carb ratio of 1 unit per 8 grams CHO consumed
--- NOTE | 2021-08-01 13:03 | Communication Note ---
Date of Service: August 01, 2021 Patient is medically stable for discharge. No medical changes needed on discharge. Given medical stability, Hospital Medicine team will sign off. Please re-consult with any questions or concerns. Thank you for letting us assist in the care of this patient!
--- NOTE | 2021-08-03 07:56 | Discharge Summary ---
Date of Service August 03, 2021 Admission HPI Per Admitting Provider This is a patient with chronic left hip and groin pain. He has been treated conservatively for left hip osteoarthritis but has failed all conservative management. He is now being set up for surgical management. Principal Diagnosis Left hip osteoarthritis Discharge Exam Constitutional well developed and well nourished; no acute distress ENMT external ear and nose normal, oropharynx normal Neck trachea midline Respiratory normal respiratory effort, lungs clear to auscultation Cardiovascular Rate/Rhythm: regular rate and regular rhythm Gastrointestinal (Abdomen) normal bowel sounds, soft, nontender, no hepatosplenomegaly Musculoskeletal Gait: + antalgic gait Hip: + surgical incision (KERRY dressing in place and functioning. C/D/I) and + surgical drain present (225 cc drainage in 24 hours); no skin erythema and no ecchymosis Skin no rashes, warm and dry Trauma: no evidence of skin trauma Neurologic normal touch/pain/proprioception Psychiatric A+Ox3, euthymic affect Speech: normal rate/rhythm/volume of speech Lymphatic no cervical or axillary lymphadenopathy Discharge Data Allergies Allergy/AdvReac Type Severity Reaction Status Date / Time bee venom protein (honey bee) Allergy Severe Anaphylaxis Verified 07/31/21 07:26 metformin AdvReac Mild Diarrhea Verified 07/31/21 07:26 (tolerates ER form) simvastatin AdvReac Mild Muscle Verified 07/31/21 07:26 aches Consultations 07/26/21 12:11 Consult Hospitalist Routine Procedures Performed Operation Date: 07/31/21 09:15 Actual Procedures p Left Total Hip Arthroplasty-Uncemented(Left) - Matt Duvall DO Hospital Course (1) Osteoarthritis of left hip: Postop day #1 status post left total hip arthroplasty PT/OT DVT prophylaxisTED stockings, aspirin 81 mg twice daily. Pain controloxycodone, Tylenol Weight-bear as tolerated left lower extremity. Discharge planningplan for home with home health today if PT goes well. Total Time Total Time Spent Total Time Spent (In Minutes): 20 Discharge Plan Discharge Items Patient Disposition: Home - Home Health Services Reason For Visit: POST SURGICAL CARE Discharge Diagnosis: Left hip osteoarthritis Status post left total hip arthroplasty Activity: Per Instructions section Weightbearing: Full weightbearing Non-emergency contact: Surgeon Call non-emergency contact if: your pain is worsening Follow-up/Referrals: Short,Mary Luis-Yenifer, DO [Primary Care Provider] - Diet: Regular Addtl Attending Provider Instructions: ACTIVITY RECOMMENDATIONS: SELF CARE INSTRUCTIONS AFTER TOTAL HIP REPLACEMENT Until the incision and soft tissues around your hip have healed, there is a possibility that the hip prosthesis could dislocate. A. Observe the following precautions to prevent dislocation: 1. Don't bend your hip greater than 90 degrees. 2. Avoid crossing your legs or ankles while standing or lying. 3. Sit with your feet placed 6 inches apart. 4. When sitting, keep your knees below your hips. Sit on a firm surface, avoid deep, soft chairs and couches. Use an elevated toilet seat in the bathroom. 5. Don't bend over at the waist. Use a long handled shoehorn and a sock aid to help you put on your shoes and socks. A dog food shredder operator can help you picker tender objects that are too high or too low to reach. 6. Keep car riding to a minimum for at least one month after surgery. B. Your balance may be shaky for a while. Use crutches or a walker until directed by your doctor. C. Use hand rails when walking on stairs. D. Wear low heeled shoes with non-slip soles. E. Be sure that your floors are free of things that could trip you - throw rugs, electrical cords, small objects. Avoid wet and waxed floors, especially with crutches and canes. F. Try to walk several times a day with rest periods between. G. Continue with all the exercises taught to you in the hospital. Again, make walking a part of your daily routine. H. It is okay to shower if minimal to no drainage from incision. No baths. Do not soak wound. I. Physical Therapy as instructed by your Physician. J. KERRY dressing: You have a KERRY dressing on your surgical wound. It will remain in place for 7 days from surgery. You will be provided with a booklet with the do's and don'ts with the dressing in place. After 7 days, the dressing may be removed. If there is drainage from the surgical incision, you may cover the wound with dry dressings SPECIAL CARE INSTRUCTIONS: VERY IMPORTANT TO READ AND REVIEW A. You may still be at risk for phlebitis and blood clots. 1. Wear surgical stockings (PARVIZ hose) for one month, 20 hours daily, after surgery to improve circulation and reduce swelling. 2. Take Aspirin (blood thinning medications), as directed by your doctor. 3. Have a pro-time (blood test) drawn according to your doctor's instruc tions. B. We encourage and will assist you in choosing a home-health agency of your choice. Home health nurses and therapists will monitor your temperature, wound healing and progress in exercise and walking. Home health nurses may also draw the blood for the pro-time test. They may instruct you in decreasing or increasing the amount of Coumadin you take. C. You must take antibiotics before having dental work, bladder, bowel and other surgery. Your doctor will provide you with a permanent card to carry describing precautions. D. Call [facility] if you have a temperature of 101 or greater, redness or swelling around the incision, cloudy drainage from incision, or sudden increase in pain in your hip, not relieved by your regular pain medication. E. Please call the office at if you have any concerns or questions about your operation or recovery. FOLLOW UP VISIT: If appointment is not already scheduled: Please call [facility] to make a follow-up appointment for 2 weeks after your surgery at . Pending Studies at Discharge: No Stand-Alone Forms: My [facility], Smoking Cessation Medications and DC Order Prescriptions: New aspirin 81 mg tablet,delayed release (DR/EC) 81 mg PO BID Qty: 60 RF: 0 oxycodone 5 mg tablet 5 mg PO Q8H PRN (Reason: pain) Qty: 20 RF: 0 acetaminophen [Tylenol Extra Strength] 500 mg tablet 1,000 mg PO Q8H Qty: 100 RF: 0 Continued allopurinol 100 mg tablet 100 mg PO BID RF: 0 glipizide 5 mg tablet extended release 24 hr 10 mg PO 1200 RF: 0 rosuvastatin [Crestor] 5 mg tablet 5 mg PO HS RF: 0 Jardiance 25 mg tablet 25 mg PO QAM RF: 0 Ozempic 0.25 mg or 0.5 mg(2 mg/1.5 mL) pen injector 0.5 mg SUBCUT WK RF: 0 metoprolol tartrate 50 mg Tablet 50 mg PO BID RF: 0 glipizide 5 mg Tablet 5 mg PO QPM RF: 0 bupropion HCl 200 mg Tablet Sustained-Release 12 Hr 200 mg PO QAM RF: 0 sildenafil 100 mg Tablet 100 mg PO DAILY PRN (Reason: Sexual Activity) RF: 0 duloxetine 30 mg Capsule,Delayed Release(Dr/Ec) 30 mg PO HS RF: 0 selenium 100 mcg Tablet 100 mcg PO QAM RF: 0 cholecalciferol (vitamin D3) [Vitamin D3] 50 mcg (2,000 unit) Tablet 50 mcg PO QAM RF: 0 metformin 500 mg Tablet Extended Release 24 Hr 1,000 mg PO BID RF: 0 Discontinued aspirin 81 mg tablet,chewable 3 tab PO HS RF: 0 Discharge Orders: Discharge Order (Routine); Ordered 08/01/21 Ordered By: Reyes Carter/Other Patient Handouts: Hip Arthroscopy: After Surgery, Hip Precautions, Hip Total Replacement Dc Admission Data Admit Date/Time: 07/31/21 10:49 Attending Provider: Matt Duvall Admit Provider: Matt Duvall Primary Care Provider: Mary Stoddard Other Providers: Brandyn Berg ; [facility] Other Interventions: Discharge Summary Assessment (RN) Last Done: 08/01/21 12:38
== END 2021-08-01 14:10 | disposition home health service (06) ==
LOC: ASU 06:57 → PACUINP 06:57 → 3E 17:26